=== PATIENT | male | born 1980 | race African-American/Black ===

== ENCOUNTER 2019-05-27 17:40 | Emergency (ER) | payer MEDICARE ==
[~2019-05-27] VITALS: Ht 185.4 cm; Wt 108.9 kg
== END 2019-05-27 17:50 | disposition left against medical advice (07) ==
LOC: ER 17:40
DX: R11.2 Nausea with vomiting, unspecified (principal); Z53.21 Procedure and treatment not carried out due to patient leaving prior to being seen by health care provider